=== PATIENT | female | born 1970 ===

== ENCOUNTER 2018-04-22 20:02 | Emergency (ER) | payer OTHER, SELFPAY ==
[2018-04-22] MEDS ORDERED: Famotidine 20mg/50ml 20 MG/50 ML BAG IVPB ONE (20:56)
[2018-04-22] MEDS: Sodium Chloride 0.9% 1,000 ML IV STA (20:59)
--- NOTE | 2018-04-22 21:36 | ED PDOC ---
HPI:Nausea, Vomiting, Diarrhea Time Seen by Provider: 04/22/18 20:11 Chief Complaint (Nursing): GI Problem Chief Complaint (Provider): Vomiting History Per: Patient History/Exam Limitations: no limitations Onset/Duration Of Symptoms: Hrs (1600) Current Symptoms Are (Timing): Still Present Associated Symptoms: Nausea, Vomiting (15 episodes). denies: Diarrhea Additional Complaint(s): 47 year old female presents to the ED complaining of weakness, nausea and vomiting onset at 1600 today. Patient states she has had 15 episodes of vomiting after eating salad. She denies abdominal pain or diarrhea. PMD: No Family Provider Past Medical History Reviewed: Historical Data, Nursing Documentation, Vital Signs Vital Signs: Last Vital Signs Temp 96.9 F L 04/22/18 20:06 Pulse 78 04/22/18 20:06 Resp 16 04/22/18 20:06 BP 137/92 H 04/22/18 20:06 Pulse Ox 99 04/22/18 20:06 - Medical History PMH: No Chronic Diseases - Surgical History Surgical History: No Surg Hx - Family History Family History: States: Unknown Family Hx - Social History Current smoker - smoking cessation education provided: No Alcohol: None Drugs: Denies - Home Medications Home Medications: Ambulatory Orders Medication Instructions Recorded Naproxen 500 mg PO BID PRN #20 tab 05/30/16 Sulfamethoxazole/Trimethoprim 1 tab PO BID #14 tab 05/30/16 [Bactrim DS 800 mg-160 mg] Esomeprazole Magnesium [Nexium] 20 mg PO QAM #30 ecc 04/22/18 Ondansetron ODT [Zofran ODT] 4 mg PO Q6 PRN #10 odt 04/22/18 - Allergies Allergies/Adverse Reactions: Allergies Allergy/AdvReac Type Severity Reaction Status Date / Time No Known Allergies Allergy Verified 05/30/16 00:28 Review of Systems ROS Statement: Except As Marked, All Systems Reviewed And Found Negative Gastrointestinal: Positive for: Nausea, Vomiting. Negative for: Abdominal Pain , Diarrhea Neurological: Positive for: Weakness Physical Exam - Reviewed Nursing Documentation Reviewed: Yes Vital Signs Reviewed: Yes - Physical Exam Appears: Positive for: In Acute Distress Head Exam: Positive for: ATRAUMATIC, NORMAL INSPECTION, NORMOCEPHALIC Skin: Positive for: Normal Color, Warm, Dry Eye Exam: Positive for: EOMI, Normal appearance, PERRL ENT: Positive for: Normal ENT Inspection, Other (dry mucous membranes) Neck: Positive for: Normal, Painless ROM, Supple. Negative for: Decreased ROM Cardiovascular/Chest: Positive for: Regular Rate, Rhythm. Negative for: Murmur Respiratory: Positive for: Normal Breath Sounds. Negative for: Decreased Breath Sounds, Accessory Muscle Use, Respiratory Distress Gastrointestinal/Abdominal: Positive for: Soft, Tenderness. Negative for: Guarding, Rebound Extremity: Positive for: Normal ROM. Negative for: Tenderness, Pedal Edema, Deformity Neurologic/Psych: Positive for: Alert, Oriented (x3). Negative for: Motor/ Sensory Deficits - Laboratory Results Result Diagrams: 04/22/18 22:47 04/22/18 22:47 - ECG O2 Sat by Pulse Oximetry: 99 (RA) Pulse Ox Interpretation: Normal Medical Decision Making Medical Decision Making: Time: 2027 Initial Impression: 47 year old female with nausea and right upper quadrant pain Initial Plan: --CMP --Lipase --ED Urine --ED Urine Dipstick --CBC w/ Differential --Normal Saline 1000 mls/hr --Pepcid 20mg --Zofran 4mg --IV Insertion --Urinalysis --Abdomen Limited (GB Included) --Reevaluation Time: 2233 EXAM: US Abdomen Limited, Right Upper Quadrant EXAM DATE/TIME: 04/22/2018 8:49 PM CLINICAL HISTORY: 47 years old, female; Pain; Abdominal pain; Epigastric; Additional info: Abd pain, n/v TECHNIQUE: Real-time ultrasound of the abdomen with image documentation. Examination is focused on the right upper quadrant. COMPARISON: No relevant prior studies available. FINDINGS: Liver: Normal. No masses. Gallbladder: Normal. No gallstones. There is not gallbladder wall thickening. Common bile duct: Normal. No stones. No dilation. Pancreas: Visualized pancreas is unremarkable. Right kidney: Normal. No mass. No hydronephrosis. IMPRESSION: No acute findings. 2324 Labs reviewed: no clinically significant abnormalities. Patient reports improvement in symptoms. Patient is stable for discharge home. Dx: gastritis Condition: improved Scribe Attestation: Documented by Felix Yousif and Fabby Martinez, acting as a scribe for Hiro Cazares MD Provider Scribe Attestation: All medical record entries made by the Scribe were at my direction and personally dictated by me. I have reviewed the chart and agree that the record accurately reflects my personal performance of the history, physical exam, medical decision making, and the department course for this patient. I have also personally directed, reviewed, and agree with the discharge instructions and disposition. Disposition - Clinical Impression Clinical Impression: Gastritis - Disposition Referrals: [facility] [Outside] Disposition: Routine/Home Disposition Time: 23:25 Condition: IMPROVED Prescriptions: Esomeprazole Magnesium [Nexium] 20 mg PO QAM #30 ecc Ondansetron ODT [Zofran ODT] 4 mg PO Q6 PRN #10 odt PRN Reason: Nausea/Vomiting Instructions: Gastritis Forms: [employer] (Slovenian) Print Language: CROATIAN
[2018-04-22 22:54] LABS: SQUAMOUS EPITHIAL 2 /hpf (0-5); URINE AMORPHOUS SEDIMENT MODERATE /ul (<OCC); URINE BACTERIA RARE (<OCC); URINE BILIRUBIN NEGATIVE (NEGATIVE); URINE BLOOD NEGATIVE (NEGATIVE); URINE CLARITY CLOUDY (Clear); URINE COLOR YELLOW (YELLOW); URINE GLUCOSE (UA) NEG (Normal); URINE LEUKOCYTE ESTERASE NEG Leu/uL (Negative); URINE PROTEIN NEGATIVE (NEGATIVE); URINE UROBILINOGEN 0.2-1.0 mg/dL (0.2-1.0)
[2018-04-22 22:58] LABS: BASO % 0.4 % (0.0-2.0); EOS % 0.3 % (0.0-4.0); HEMOGLOBIN 11.6 g/dL (12.0-16.0); LYMPH # 1.3 K/uL (1.0-4.3); LYMPH % 11.9 % (20.0-40.0); MEAN CORPUSCULAR HEMOGLOBIN 23.4 pg (27.0-31.0); MEAN CORPUSCULAR HGB CONC 31.6 g/dL (33.0-37.0); MEAN PLATELET VOLUME 9.6 fl (7.2-11.7); MONO # 0.4 K/uL (0.0-0.8); MONO % 3.3 % (0.0-10.0); NEUT # 9.4 K/uL (1.8-7.0); NEUT % 84.1 % (50.0-75.0); NRBC % 0.1 % (0.0-0.0); RBC 4.97 Mil/uL (3.80-5.20); RED CELL DISTRIBUTION WIDTH 17.2 % (11.5-14.5); WHITE BLOOD COUNT 11.2 K/uL (4.8-10.8)
[2018-04-22 23:09] LABS: ALB/GLOB RATIO 1.5 (1.0-2.1); ALT/SGPT 28 U/L (9-52); AST/SGOT 29 U/L (14-36); BLOOD UREA NITROGEN 14 mg/dl (7-17); CALCIUM 9.8 mg/dL (8.4-10.2); GFR AFRICAN-AMERICAN > 60; GFR NON-AFRICAN AMERICAN > 60; LIPASE 77 U/L (23-300)
[2018-04-22 23:16] VITALS: BP 119/73; PULSE 83; RESP 20; TEMP 98.6
[2018-04-22 23:26] VITALS: O2SAT 99
--- NOTE | 2018-04-23 13:17 | US ---
HISTORY: abd pain, N/V COMPARISON: CT scan of the abdomen and pelvis dated 01/11/2017. TECHNIQUE: Sonographic evaluation of the right upper quadrant of the abdomen. FINDINGS: LIVER: Measures 15.4 cm in length. Increased echogenicity of the liver parenchyma. No mass. No intrahepatic bile duct dilatation. GALLBLADDER: Unremarkable. No gallstones. COMMON BILE DUCT: Measures 3 mm. No stones. No dilatation. PANCREAS: Unremarkable as visualized. No mass. No ductal dilatation. RIGHT KIDNEY: Measures 11.1 x 4.4 x 4.2 cm in length. Normal echogenicity. No calculus, mass, or hydronephrosis. AORTA: No aneurysmal dilatation. IVC: Unremarkable. OTHER FINDINGS: None . IMPRESSION: Hepatic steatosis.
== END 2018-04-22 23:58 | disposition home or self-care (01) ==
LOC: H.ER 20:02
DX: K29.70 Gastritis, unspecified, without bleeding (principal); K76.0 Fatty (change of) liver, not elsewhere classified
CPT/HCPCS: 76705; 80053; 81003; 81025; 83690; 85025; 96360; 99284; J2405; J7030

== ENCOUNTER 2019-01-06 09:12 | Emergency (ER) | payer SELFPAY ==
[2019-01-06 09:17] VITALS: O2SAT 99
--- NOTE | 2019-01-06 10:16 | ED PDOC ---
HPI: Skin/Bite Injury Time Seen by Provider: 01/06/19 09:37 Chief Complaint (Nursing): Back Pain Chief Complaint (Provider): Shingles History Per: Patient History/Exam Limitations: no limitations Onset/Duration Of Symptoms: Days Current Symptoms Are (Timing): Still Present Location Of Injury: Right: Back Quality Of Symptoms: Painful Additional History Per: Patient Additional Complaint(s): 48yo female, otherwise well, comes to ER reporting persistent pain to her back and left breast. Patient states she has had the pain x 2 weeks, with vesicles in the area; she was evaluated 5 days ago and diagnosed with shingles. Patient has been taking acyclovir and gabapentin for the past 5 days with minimal relief of symptoms. Otherwise, no fever, chills, chest pain, shortness of breath, or other complaints. PMD: [facility] Past Medical History Reviewed: Historical Data, Nursing Documentation, Vital Signs Vital Signs: Last Vital Signs Temp 98.3 F 01/06/19 09:16 Pulse 85 01/06/19 09:16 Resp 19 01/06/19 09:16 BP 156/101 H 01/06/19 09:16 Pulse Ox 99 01/06/19 09:16 - Medical History PMH: No Chronic Diseases - Surgical History Surgical History: No Surg Hx - Family History Family History: States: No Known Family Hx - Living Arrangements Living Arrangements: With Family - Social History Current smoker - smoking cessation education provided: No Alcohol: None Drugs: Denies - Home Medications Home Medications: Ambulatory Orders Medication Instructions Recorded RX: Naproxen 500 mg PO BID PRN #20 tab 05/30/16 Sulfamethoxazole/Trimethoprim 1 tab PO BID #14 tab 05/30/16 [Bactrim DS 800 mg-160 mg] Esomeprazole Magnesium [Nexium] 20 mg PO QAM #30 ecc 04/22/18 Ondansetron ODT [Zofran ODT] 4 mg PO Q6 PRN #10 odt 04/22/18 oxyCODONE/Acetaminophen [Percocet 1 tab PO Q6 PRN #15 tab 01/06/19 5/325 mg Tab] - Allergies Allergies/Adverse Reactions: Allergies Allergy/AdvReac Type Severity Reaction Status Date / Time No Known Allergies Allergy Verified 05/30/16 00:28 Review of Systems ROS Statement: Except As Marked, All Systems Reviewed And Found Negative Musculoskeletal: Positive for: Back Pain Skin: Positive for: Other (vesicles to left upper back and left breast) Physical Exam - Reviewed Nursing Documentation Reviewed: Yes Vital Signs Reviewed: Yes - Physical Exam Appears: Positive for: Non-toxic, No Acute Distress Skin: Positive for: Warm, Dry Eye Exam: Positive for: EOMI, PERRL Cardiovascular/Chest: Positive for: Regular Rate, Rhythm Respiratory: Positive for: Normal Breath Sounds Back: Positive for: Other (flat, crusted vesicles (no fluid filled) present on mid left back and into left breast. + tenderness) Neurologic/Psych: Positive for: Alert, Oriented. Negative for: Motor/Sensory Deficits - ECG O2 Sat by Pulse Oximetry: 99 (RA) Pulse Ox Interpretation: Normal Medical Decision Making Medical Decision Making: Impression: Shingles Differential: Neuropathy Plan: -- Discussed with aptient regarding plan for pain control at home, she is agreeable. Instructed to continue valcyclovir as well as gabapentin. Informed the pain can last for a long duration, and patient expresses understanding. Discussed with patient regarding using NSAIDs and continuous use of gabapentin, informed of risks with opoid pain relief including addiction, respiratory failure and . Patient states she understands risks and is agreeable with discussed plan of care. Stable for discharge home. Scribe Attestation: Documented by Christy Frost acting as a scribe for Tomás Aguirre MD Provider Attestation: All medical record entries made by the Scribe were at my direction and personally dictated by me. I have reviewed the chart and agree that the record accurately reflects my personal performance of the history, physical exam, medical decision making, and the department course for this patient. I have also personally directed, reviewed, and agree with the discharge instructions and disposition. Disposition - Clinical Impression Clinical Impression: Shingles - Patient ED Disposition Is Patient to be Admitted: No Doctor Will See Patient In The: Office Counseled Patient/Family Regarding: Studies Performed, Diagnosis - Disposition Referrals: [facility] [Outside] Disposition: Routine/Home Disposition Time: 10:19 Condition: GOOD Additional Instructions: YAO SUAREZ, thank you for letting us take care of you today. Your provider was Tomás Aguirre MD and you were treated for LT SIDE BREAST PAIN, BACK PAIN. The emergency medical care you received today was directed at your acute symptoms. If you were prescribed any medication, please fill it and take as directed. It may take several days for your symptoms to resolve. Return to the Emergency Department if your symptoms worsen, do not improve, or if you have any other problems. Please contact your doctor or call one of the physicians/clinics you have been referred to that are listed on the Patient Visit Information form that is included in your discharge packet. Bring any paperwork you were given at discharge with you along with any medications you are taking to your follow up visit. Our treatment cannot replace ongoing medical care by a primary care provider outside of the emergency department. Thank you for allowing the [facility] team to be part of your care today. If you had an X-Ray or CT scan: A Radiologist will review the ED reading if any change in treatment is needed we will contact you. If you had a blood, urine, or wound culture: It will take several days for the results, if any change in treatment is needed we will contact you. If you had an STI test: It will take 48 hours for the results. Please call after 1 week if you have not heard back. Prescriptions: oxyCODONE/Acetaminophen [Percocet 5/325 mg Tab] 1 tab PO Q6 PRN #15 tab PRN Reason: Pain, Severe (8-10) Instructions: [place] Print Language: CENTRAL AFRICAN
[2019-01-06 11:20] VITALS: BP 137/89; PULSE 82; RESP 18; TEMP 98.5
== END 2019-01-06 11:17 | disposition home or self-care (01) ==
LOC: H.ER 09:12
DX: B02.9 Zoster without complications (principal)